=== PATIENT | male | born 1965 | race Caucasian/White ===

== ENCOUNTER 2017-01-11 11:58 | Inpatient (IN) | payer OTHER ==
[~2017-01-11] VITALS: Ht 167.6 cm; Wt 58.2 kg
[2017-01-11] VITALS (9 sets, daily range): BP systolic 126–165; BP diastolic 72–92; PULSE 76–101; RESP 18–30; TEMP 97.8–98.2; O2SAT 92–98
[2017-01-11] MEDS: SODIUM CHLOR 0.9% 1000 ML INJ 1,000 ML IV SCH ×2 (02:00→18:05)
[2017-01-11] MEDS ORDERED: SODIUM CHLOR 0.9% 1000 ML INJ 1,000 ML IV ONE (12:17)
[2017-01-11 12:20] LABS: MEAN CORPUSCULAR HGB CONC 27.9 % (32.0-36.0)
--- NOTE | 2017-01-11 12:23 | PD ---
HPI Chief Complaint: Diabetic Time Seen by Provider: 12:17 Travel History International Travel<30 days: No Contact w/Intl Traveler<30days: No Traveled to known affect area: No History of Present Illness HPI 51-year-old male with history of diabetes, previous episodes of DKA, hypertension, multiple medical issues, nursing notes reviewed, presents to the ER today because he has had 2 weeks' history of nausea, vomiting, not feeling well according to roommates, and his blood sugar read high according to EMS. He denies any fevers, abdominal pain, chest pains, shortness of breath, or other issues. He has not been able to take his medications due to vomiting. Modifying Factors: None Associated Signs & Symptoms: Nausea, vomiting, not keeping anything down, elevated blood sugar Risk Factors: Diabetic PFSH Past Medical History Cardiovascular Problems: Yes Diabetes: Yes Social History Tobacco Use: No Allergies-Medications (Allergen,Severity, Reaction): Coded Allergies: Iodine (Verified Allergy, Severe, ITCHING, 01/11/17) Shellfish (Verified Allergy, Intermediate, ITCHING, 01/11/17) Reported Meds & Prescriptions Reported Meds & Active Scripts Active Reported Levemir Flextouch Pen Inj (Insulin Detemir) 300 unit/3 ML Pen 20 Units SQ BID Meclizine (Meclizine HCl) 25 Mg Tab 25 Mg PO TID PRN Metformin (Metformin HCl) 500 Mg Tab 500 Mg PO BIDPC With meals Review of Systems Except as stated in HPI: all other systems reviewed are Neg Physical Exam Narrative GENERAL: Well-nourished, well-developed middle age white male patient in moderate distress, vomiting in the ER. Awake and oriented 3. SKIN: Warm and dry. HEAD: Normocephalic. EYES: No scleral icterus. No injection or drainage. NECK: Supple, trachea midline. CARDIOVASCULAR: Regular rate and rhythm without murmurs, gallops, or rubs. RESPIRATORY: Breath sounds equal bilaterally. No accessory muscle use. GASTROINTESTINAL: Abdomen soft, non-tender, nondistended. MUSCULOSKELETAL: No cyanosis, or edema. BACK: Nontender without obvious deformity. No CVA tenderness. NEUROLOGICAL: Awake. Cranial nerves II through XII intact. Motor and sensory grossly within normal limits. Five out of 5 muscle strength in all muscle groups. Normal speech. Lethargic. Data Data Last Documented VS Vital Signs Date Time Temp Pulse Resp B/P Pulse Ox O2 Delivery O2 Flow Rate FiO2 01/11/17 15:52 98.0 78 18 160/92 97 Nasal Cannula 3 Orders Complete Blood Count With Diff (01/11/17 12:17) Comprehensive Metabolic Panel (01/11/17 12:17) Magnesium (Mg) (01/11/17 12:17) Phosphorus (Po4) (01/11/17 12:17) Beta Hydroxybutyrate (Acetone) (01/11/17 12:17) Urinalysis - C+S If Indicated (01/11/17 12:17) Arterial Blood Gas (Abg) (01/11/17 12:17) Blood Glucose (01/11/17 12:17) Blood Glucose (01/11/17 13:17) Ecg Monitoring (01/11/17:17) Iv Access Insert/Monitor (01/11/17 12:17) Oximetry (01/11/17 12:17) NPO (01/11/17 12:17) Sodium Chloride 0.9% Flush (Ns Flush) (01/11/17 12:30) Sodium Chlor 0.9% 1000 Ml Inj (Ns 1000 M (01/11/17 12:17) Lipase (01/11/17 12:23) Ondansetron Inj (Zofran Inj) (01/11/17 12:45) Promethazine Inj (Phenergan Inj) (01/11/17 13:30) Ns + Kcl 20 Meq Inj (Ns + Kcl 20 Meq Inj (01/11/17 16:30) ^ Insert Iv (01/11/17 17:03) Diet Npo (01/11/17 Dinner) Sodium Chlor 0.9% 1000 Ml Inj (Ns 1000 M (01/11/17 17:03) Dext 5%-Nacl 0.9% 1000 Ml Inj (D5w-Ns 10 (01/11/17 17:03) Insulin Human Regular Inj (Novolin R Inj (01/11/17 17:15) Insulin Regular (Iv Infusion) (Novolin R (01/11/17 17:15) Potassium Chlor 40 Meq Premix (Kcl 40 Me (01/11/17 17:15) Potassium Chlor 40 Meq Premix (Kcl 40 Me (01/11/17 17:15) Potassium Chlor 20 Meq Premix (Kcl 20 Me (01/11/17 17:15) Potassium Chlor 20 Meq Premix (Kcl 20 Me (01/11/17 17:15) Potassium Chlor 20 Meq Premix (Kcl 20 Me (01/11/17 17:15) Potassium Chlor 20 Meq Premix (Kcl 20 Me (01/11/17 17:15) Potassium Chlor 20 Meq Premix (Kcl 20 Me (01/11/17 17:15) Potassium Chlor 20 Meq Premix (Kcl 20 Me (01/11/17 17:15) Sodium Bicarbonate 8.4% Inj (Sodium Bica (01/11/17 17:15) Sodium Bicarbonate 8.4% Inj (Sodium Bica (01/11/17 17:15) Sodium Phosphate Inj (Sodium Phosphate I (01/11/17 17:15) Hemoglobin (Hgb) A1c (01/11/17 17:03) Basic Metabolic Panel (Bmp) (01/11/17 22:03) Basic Metabolic Panel (Bmp) (01/12/17 04:03) Basic Metabolic Panel (Bmp) (01/12/17 10:03) Basic Metabolic Panel (Bmp) (01/12/17 16:03) Magnesium (Mg) (01/11/17 22:03) Magnesium (Mg) (01/12/17 04:03) Magnesium (Mg) (01/12/17 10:03) Magnesium (Mg) (01/12/17 16:03) Phosphorus (Po4) (01/11/17 22:03) Phosphorus (Po4) (01/12/17 04:03) Phosphorus (Po4) (01/12/17 10:03) Phosphorus (Po4) (01/12/17 16:03) Beta Hydroxybutyrate (Acetone) (01/12/17 04:03) Beta Hydroxybutyrate (Acetone) (01/12/17 16:03) Admit Order (Ed Use Only) (01/11/17 17:22) Labs Laboratory Tests Test 01/11/17 01/11/17 01/11/17 12:30 12:52 13:00 White Blood Count 15.9 TH/MM3 Red Blood Count 4.73 MIL/MM3 Hemoglobin 14.3 GM/DL Hematocrit 51.2 % Mean Corpuscular Volume 108.2 FL Mean Corpuscular Hemoglobin 30.2 PG Mean Corpuscular Hemoglobin 27.9 % Concent Red Cell Distribution Width 13.9 % Platelet Count 233 TH/MM3 Mean Platelet Volume 9.8 FL Neutrophils (%) (Auto) 89.7 % Lymphocytes (%) (Auto) 2.4 % Monocytes (%) (Auto) 7.7 % Eosinophils (%) (Auto) 0.1 % Basophils (%) (Auto) 0.1 % Neutrophils # (Auto) 14.3 TH/MM3 Lymphocytes # (Auto) 0.4 TH/MM3 Monocytes # (Auto) 1.2 TH/MM3 Eosinophils # (Auto) 0.0 TH/MM3 Basophils # (Auto) 0.0 TH/MM3 CBC Comment DIFF FINAL Differential Comment Sodium Level 126 MEQ/L Potassium Level 2.3 MEQ/L Chloride Level 84 MEQ/L Carbon Dioxide Level 29.5 MEQ/L Anion Gap 13 MEQ/L Blood Urea Nitrogen 33 MG/DL Creatinine 2.46 MG/DL Estimat Glomerular Filtration 28 ML/MIN Rate Random Glucose 1854 MG/DL Calcium Level 8.0 MG/DL Phosphorus Level 4.5 MG/DL Magnesium Level 2.4 MG/DL Total Bilirubin 0.9 MG/DL Aspartate Amino Transf 15 U/L (AST/SGOT) Alanine Aminotransferase 11 U/L (ALT/SGPT) Alkaline Phosphatase 106 U/L Total Protein 6.5 GM/DL Albumin 3.4 GM/DL B-Hydroxybutyrate 0.17 MMOL/L Blood Gas Puncture Site LT RADIAL Blood Gas Patient Temperature 98.6 Blood Gas HCO3 26 mmol/L Blood Gas Base Excess -0.1 mmol/L Blood Gas Oxygen Saturation 80 % Arterial Blood pH 7.25 Arterial Blood Partial 62 mmHg Pressure CO2 Arterial Blood Partial 64 mmHG Pressure O2 Arterial Blood Oxygen Content 15.3 Vol % Arterial Blood 5.8 % Carboxyhemoglobin Arterial Blood Methemoglobin 2.0 % Blood Gas Hemoglobin 13.5 G/DL Oxygen Delivery Device ROOM AIR Blood Gas Inspired Oxygen 21 % Urine Color COLORLESS Urine Turbidity CLEAR Urine pH 5.0 Urine Specific [place] 1.026 Urine Protein NEG mg/dL Urine Glucose (UA) 1000 mg/dL Urine Ketones NEG mg/dL Urine Occult Blood TRACE Urine Nitrite NEG Urine Bilirubin NEG Urine Urobilinogen LESS THAN 2.0 MG/DL Urine Leukocyte Esterase NEG Urine RBC 1 /hpf Urine WBC 3 /hpf Microscopic Urinalysis Comment CULT NOT INDICATED MDM Medical Decision Making Medical Screen Exam Complete: Yes Emergency Medical Condition: Yes Medical Record Reviewed: Yes Interpretation(s) Laboratory Tests Test 01/11/17 01/11/17 01/11/17 12:30 12:52 13:00 White Blood Count 15.9 TH/MM3 (4.0-11.0) Hematocrit 51.2 % (39.0-51.0) Mean Corpuscular Volume 108.2 FL (80.0-100.0) Mean Corpuscular Hemoglobin 27.9 % Concent (32.0-36.0) Neutrophils (%) (Auto) 89.7 % (16.0-70.0) Lymphocytes (%) (Auto) 2.4 % (9.0-44.0) Neutrophils # (Auto) 14.3 TH/MM3 (1.8-7.7) Lymphocytes # (Auto) 0.4 TH/MM3 (1.0-4.8) Monocytes # (Auto) 1.2 TH/MM3 (0-0.9) Sodium Level 126 MEQ/L (136-145) Potassium Level 2.3 MEQ/L (3.5-5.1) Chloride Level 84 MEQ/L (98-107) Blood Urea Nitrogen 33 MG/DL (7-18) Creatinine 2.46 MG/DL (0.60-1.30) Estimat Glomerular Filtration 28 ML/MIN (>89) Rate Random Glucose 1854 MG/DL (74-106) Calcium Level 8.0 MG/DL (8.5-10.1) Alanine Aminotransferase 11 U/L (12-78) (ALT/SGPT) Blood Gas Oxygen Saturation 80 % (90-100) Arterial Blood pH 7.25 (7.380-7.420) Arterial Blood Partial 62 mmHg (38-42) Pressure CO2 Arterial Blood 5.8 % (0-4) Carboxyhemoglobin Urine Glucose (UA) 1000 mg/dL (NEG) Urine Occult Blood TRACE (NEG) Differential Diagnosis Nausea, vomiting, elevated blood sugarshypoglycemia versus dehydration versus metabolic issues versus gastroenteritis versus DKA Narrative Course Lab work returns showing significant dehydration, hypokalemia, severe hyperglycemia. He was given IV fluids in the ER, potassium in the ER, and insulin in the ER. DKA protocol was initiated. Case was discussed with patient 's and at this point, my plan would be to admit the patient for further treatment and evaluation. Case was discussed with [facility] resident service for admission. Patient's white blood cell counts are fairly elevated for unknown reasons. He was given IV antibiotics as well as precaution. Aggregate critical care time was 30 minutes. Time to perform other separately billable procedures was not included in the critical care time. My time did not include minutes spent treating any other patients simultaneously or on activities that did not directly contribute to the patient's treatment. The services I provided to this patient were to treat and/or prevent clinically significant deterioration that could result in: DKA, worsening of her toilet abnormalities, dysrhythmias, I provided critical care services requiring my management, as noted below: Chart data review, documentation time, medication orders and management, vital sign assessments/reviewing monitor data, ordering and reviewing lab tests, ordering and interpreting/reviewing x-rays and diagnostic studies, care of the patient and discussion of the patient with the admitting physicians. Diagnosis Primary Impression: HYPERGLYCEMIA, UNSPECIFIED Additional Impression: Severe dehydration Admitting Information Admitting Physician Requests: Admit Jackson Read MD Jan 11, 2017 12:23
[2017-01-11] MEDS ORDERED: MECL-62 PO (12:27)
[2017-01-11] MEDS ORDERED: METF500T PO (12:27)
[2017-01-11] MEDS ORDERED: INSU1INJ5 SQ (12:27)
[2017-01-11] MEDS ORDERED: ONDANSETRON HCL 4 MG/2 ML VIAL IV PUSH ONE (12:45)
[2017-01-11 13:00] LABS: AUTOMATED NEUTROPHIL # 14.3 TH/MM3 (1.8-7.7); BASOPHIL % 0.1 % (0.0-2.0); EOSINOPHIL % 0.1 % (0.0-4.0); HEMATOCRIT 51.2 % (39.0-51.0); HEMO FLAGS DIFF FINAL; LYMPH % 2.4 % (9.0-44.0); LYMPHOCYTE # 0.4 TH/MM3 (1.0-4.8); MEAN CELL VOLUME 108.2 FL (80.0-100.0); MEAN CORPUSCULAR HEMOGLOBIN 30.2 PG (27.0-34.0); MONO % 7.7 % (0.0-8.0); NEUT % 89.7 % (16.0-70.0); PLATELET COUNT 233 TH/MM3 (150-450); RED BLOOD COUNT 4.73 MIL/MM3 (4.50-5.90); RED CELL DISTRIBUTION WIDTH 13.9 % (11.6-17.2); WHITE BLOOD COUNT 15.9 TH/MM3 (4.0-11.0)
[2017-01-11 13:02] LABS: BLOOD GAS BASE EXCESS -0.1 mmol/L (-2-2); BLOOD GAS CARBOXYHEMOGLOBIN 5.8 % (0-4); BLOOD GAS HCO3 26 mmol/L (22-26); BLOOD GAS O2 HGB SATURATION 80 % (90-100); BLOOD GAS OXYGEN CONTENT 15.3 Vol % (12.0-20.0); BLOOD GAS PCO2 62 mmHg (38-42); BLOOD GAS PO2 64 mmHG (61-120); BLOOD GAS TOTAL HGB 13.5 G/DL (12.0-16.0); CRITICAL VALUE YES; TEMP CORR TO 98.6
[2017-01-11 13:03] LABS: DRAW SITE LT RADIAL; FIO2 21 %; NUMBER OF ARTERIAL PUNCTURES 2; OXYGEN DEVICE ROOM AIR; STAT YES
[2017-01-11] MEDS: SODIUM CHLORIDE 0.9% FLUSH 5 ML FLUSH IVF PRN ×2 (13:30→17:50)
[2017-01-11] MEDS ORDERED: PROMETHAZINE INJ 25 MG/ML VIAL IM ONE (13:30)
[2017-01-11 13:43] LABS: BLOOD, URINE TRACE (NEG); GLUCOSE,URINE 1000 mg/dL (NEG); KETONE, URINE NEG (NEG); NITRITE,URINE NEG (NEG); URINE COLOR COLORLESS (YELLW/STRAW)
[2017-01-11 13:44] LABS: COMMENT (UR) CULT NOT INDICATED; CULTURE IF INDICATED CULT NOT INDICATED
[2017-01-11 16:11] LABS: ALKALINE PHOSPHATASE 106 U/L (45-117); ALT (GPT) 11 U/L (12-78); ANION GAP 13 MEQ/L (5-15); AST (GOT) 15 U/L (15-37); BETA-HYDROXYBUTYRATE 0.17 MMOL/L (0.00-0.39); BICARBONATE 29.5 MEQ/L (21.0-32.0); BLOOD UREA NITROGEN 33 MG/DL (7-18); CHLORIDE 84 MEQ/L (98-107); GLOMERULAR FILTRATION RATE 28 ML/MIN (>89); MAGNESIUM 2.4 MG/DL (1.5-2.5); SODIUM (NA) 126 MEQ/L (136-145); TOTAL BILIRUBIN ADULT 0.9 MG/DL (0.2-1.0)
[2017-01-11 16:19] LABS: POTASSIUM 2.3 MEQ/L (3.5-5.1)
[2017-01-11] MEDS ORDERED: NS + KCL 20 MEQ INJ 1,000 ML IV ONE (16:30)
[2017-01-11] MEDS ORDERED: DEXT 5%-NACL 0.9% 1000 ML INJ 1,000 ML IV SCH (17:03)
[2017-01-11] MEDS ORDERED: SODIUM BICARBONATE 8.4% SOLN 50 MEQ/50 ML VIAL IV PRN ×2 (17:15)
[2017-01-11] MEDS ORDERED: INSULIN REGULAR (IV INFUSION) 100 UNITS in SODIUM CHLORIDE 0.9% INJ 99 ML IV SCH (17:15)
[2017-01-11] MEDS ORDERED: INSULIN HUMAN REGULAR 1,000 UNITS/10 ML VIAL IV PUSH ONE (17:15)
[2017-01-11] MEDS ORDERED: SODIUM PHOSPHATE INJ 15 MMOL in SODIUM CHLORIDE 0.9% INJ 100 ML IV PRN (17:15)
[2017-01-11] MEDS ORDERED: POTASSIUM CHLOR 20 MEQ PREMIX 100 ML IV PRN ×5 (17:15)
[2017-01-11] MEDS ORDERED: POTASSIUM CHLOR 40 MEQ PREMIX 100 ML IV PRN ×2 (17:15)
[2017-01-11] MEDS ORDERED: PIPERACIL-TAZO 4.5 GM PREMIX 100 ML IV STA (17:29)
--- NOTE | 2017-01-11 17:45 | HHI.HP ---
[facility] Service Family Medicine Primary Care Physician Non-Staff Admission Diagnosis severe hyperglycemia/dehydration Diagnoses: International Travel<30 Days: No Contact w/Intl Traveler<30days: No Known Affected Area: No History of Present Illness Of note patient is unwilling to communicate during this H&P, data obtained from chart review This is a 51-year-old male with a history of diabetes, previous episodes of DKA, hypertension, and noncompliance. Presenting for 2 week history of nausea and vomiting and just overall malaise. Complaining of abdominal pain and feeling nauseated. Otherwise unwilling to communicate, and history obtained from roommate who had left prior to my arrival. 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's tenosynovitis: Currently with stitches in place Reported Medications Reported Meds & Active Scripts Active Reported Levemir Flextouch Pen Inj (Insulin Detemir) 300 unit/3 ML Pen 20 Units SQ BID Meclizine (Meclizine HCl) 25 Mg Tab 25 Mg PO TID PRN Metformin (Metformin HCl) 500 Mg Tab 500 Mg PO BIDPC With meals Allergies: Coded Allergies: Iodine (Verified Allergy, Severe, ITCHING, 01/11/17) Shellfish (Verified Allergy, Intermediate, ITCHING, 01/11/17) Family History Unable to obtain Social History Unable to obtain Physical Exam Vital Signs Vital Signs Date Time Temp Pulse Resp B/P Pulse Ox O2 Delivery O2 Flow Rate FiO2 01/11/17 15:52 98.0 78 18 160/92 97 Nasal Cannula 3 01/11/17 14:54 76 18 126/74 98 Nasal Cannula 3 01/11/17 14:15 77 20 165/86 97 Nasal Cannula 3 01/11/17 12:43 92 20 140/79 96 Nasal Cannula 3 01/11/17 12:30 89 22 96 Nasal Cannula 3 01/11/17 12:23 22 96 Nasal Cannula 3 01/11/17 12:16 97.8 90 22 146/78 92 Physical Exam GENERAL: Cachectic, middle age white male patient in moderate distress, vomiting. Awake unwilling to answer questions SKIN: Warm and dry. HEAD: Normocephalic. ENT: No scleral icterus. No injection or drainage. No nasal drainage. Tympanic membranes observed borders appropriate, cone of light reflecting to back of the head NECK: Supple, trachea midline. CARDIOVASCULAR: Regular rate and rhythm without murmurs, gallops, or rubs. RESPIRATORY: Breath sounds equal bilaterally. No accessory muscle use. GASTROINTESTINAL: Abdomen soft, non-tender, nondistended. MUSCULOSKELETAL: No cyanosis, or edema. Hand and cloth bandage with stitches across the palm BACK: Nontender without obvious deformity. No CVA tenderness. NEUROLOGICAL: Awake. Cranial nerves II through XII grossly intact. Motor and sensory grossly within normal limits. Speaking in one-word sentences, not answering questions, not following commands Laboratory Laboratory Tests Test 01/11/17 01/11/17 01/11/17 12:30 12:52 13:00 White Blood Count 15.9 Red Blood Count 4.73 Hemoglobin 14.3 Hematocrit 51.2 Mean Corpuscular Volume 108.2 Mean Corpuscular Hemoglobin 30.2 Mean Corpuscular Hemoglobin 27.9 Concent Red Cell Distribution Width 13.9 Platelet Count 233 Mean Platelet Volume 9.8 Neutrophils (%) (Auto) 89.7 Lymphocytes (%) (Auto) 2.4 Monocytes (%) (Auto) 7.7 Eosinophils (%) (Auto) 0.1 Basophils (%) (Auto) 0.1 Neutrophils # (Auto) 14.3 Lymphocytes # (Auto) 0.4 Monocytes # (Auto) 1.2 Eosinophils # (Auto) 0.0 Basophils # (Auto) 0.0 CBC Comment DIFF FINAL Differential Comment Sodium Level 126 Potassium Level 2.3 Chloride Level 84 Carbon Dioxide Level 29.5 Anion Gap 13 Blood Urea Nitrogen 33 Creatinine 2.46 Estimat Glomerular Filtration 28 Rate Random Glucose 1854 Calcium Level 8.0 Phosphorus Level 4.5 Magnesium Level 2.4 Total Bilirubin 0.9 Aspartate Amino Transf 15 (AST/SGOT) Alanine Aminotransferase 11 (ALT/SGPT) Alkaline Phosphatase 106 Total Protein 6.5 Albumin 3.4 B-Hydroxybutyrate 0.17 Blood Gas Puncture Site LT RADIAL Blood Gas Patient Temperature 98.6 Blood Gas HCO3 26 Blood Gas Base Excess -0.1 Blood Gas Oxygen Saturation 80 Arterial Blood pH 7.25 Arterial Blood Partial 62 Pressure CO2 Arterial Blood Partial 64 Pressure O2 Arterial Blood Oxygen Content 15.3 Arterial Blood 5.8 Carboxyhemoglobin Arterial Blood Methemoglobin 2.0 Blood Gas Hemoglobin 13.5 Oxygen Delivery Device ROOM AIR Blood Gas Inspired Oxygen 21 Urine Color COLORLESS Urine Turbidity CLEAR Urine pH 5.0 Urine Specific [place] 1.026 Urine Protein NEG Urine Glucose (UA) 1000 Urine Ketones NEG Urine Occult Blood TRACE Urine Nitrite NEG Urine Bilirubin NEG Urine Urobilinogen LESS THAN 2.0 Urine Leukocyte Esterase NEG Urine RBC 1 Urine WBC 3 Microscopic Urinalysis Comment CULT NOT INDICATED Result Diagram: 01/11/17 1230 01/11/17 1230 Imaging Last Impressions Chest X-Ray 01/11/17 1729 Signed Impressions: Service Date/Time: Wednesday, January 11, 2017 18:34 - CONCLUSION: No acute disease. Filipe Meredith MD Assessment and Plan Assessment and Plan This is a 51-year-old male with a history of diabetes, previous episodes of DKA, hypertension, and noncompliance. Patient is being admitted to the ICU for severely elevated hyperglycemia borderline DKA. Code Status Full code Discussed Condition With [facility]DW: Dr. Longo Problem List: (1) Hyperglycemia without ketosis Status: Acute Plan: Patient is found to have a random glucose of 1854. Anion gap 13. BUN/ creatinine is 33/2.46 respectively. Beta hydroxybutyrate is 0.17. HHS vs start of DKA * Admit to the ICU * Started DKA protocol (i.e. IV fluids, insulin, potassium) * Zofran 4 mg IV every 6 hours when necessary nausea or vomiting * Zosyn IV 1 * Monitor electrolytes and replace accordingly per protocol * CBC, BMP ordered for the a.m. (2) Severe dehydration Status: Acute Plan: Patient is receiving IV fluids per DKA protocol (3) Hyperkalemia Status: Acute Plan: Patient is hypokalemic at 2.3 patient is receiving IV potassium per DKA protocol (4) Noncompliance Status: Acute Plan: Patient with a history of noncompliance. We'll emphasize the importance of taking his medication once he has improvement of his clinical condition (5) Nutrition, metabolism, and development symptoms Status: Acute Plan: Bed rest Monitor I's and O's Vitals every 4 hours Neuro checks every 4 SCDs and heparin every 8 for DVT prophylaxis CODE STATUS: Full code Disposition: Pending improvement of hyperglycemia Physician Certification 2 Midnight Certification Type: Admission for Inpatient Services Order for Inpatient Services The services are ordered in accordance with Medicare regulations or non- Medicare payer requirements, as applicable. In the case of services not specified as inpatient-only, they are appropriately provided as inpatient services in accordance with the 2-midnight benchmark. Estimated LOS (days): 2 days is the estimated time the patient will need to remain in the hospital, assuming treatment plan goals are met and no additional complications. Post-Hospital Plan: Home Andrei Mariano MD R2 Jan 11, 2017 17:45
[2017-01-11] MEDS: POTASSIUM CHLOR 20 MEQ PREMIX 100 ML IV PRN ×2 (17:46→22:46)
[2017-01-11] MEDS ORDERED: NALOXONE HCL 0.4 MG/ML AMP IV PRN (18:15)
[2017-01-11] MEDS ORDERED: SODIUM CHLORIDE 0.9% FLUSH 5 ML FLUSH FLUSH PRN (18:15)
[2017-01-11] MEDS ORDERED: ACETAMINOPHEN 325 MG TAB PO PRN (18:15)
[2017-01-11] MEDS: ONDANSETRON HCL 4 MG/2 ML VIAL IVP PRN ×2 (18:23→21:07)
--- NOTE | 2017-01-11 19:06 | RADRPT ---
EXAM DATE/TIME: 01/11/2017 18:34 [place] COMPARISON: No previous studies available for comparison. INDICATIONS : Patient has been short of breath and felt dehydrated for three days. MEDICAL HISTORY : Diabetes mellitus type I. SURGICAL HISTORY : None. ENCOUNTER: Initial ACUITY: 3 days PAIN SCORE: 0/10 LOCATION: Bilateral chest FINDINGS: A single view of the chest demonstrates the lungs to be symmetrically aerated without evidence of mas s, infiltrate or effusion. The cardiomediastinal contours are unremarkable. Osseous structures are intact. CONCLUSION: No acute disease. Filipe Meredith MD on January 11, 2017 at 19:04 Board Certified Radiologist. This report was verified electronically.
[2017-01-11 20:06] LABS: LACTIC ACID GHOST NOT REPORTABLE
[2017-01-11] MEDS ORDERED: hydrALAZINE HCL 20 MG/ML VIAL IV PRN (20:30)
[2017-01-11] MEDS ORDERED: CHLORHEXIDINE GLUCONATE 2 % 1 PACK (2 CLOTHS)(extra cloths) TOP PRN (21:15)
[2017-01-11 22:08] LABS: ANION GAP 10 MEQ/L (5-15); BICARBONATE 32.8 MEQ/L (21.0-32.0); BLOOD UREA NITROGEN 30 MG/DL (7-18); CHLORIDE 98 MEQ/L (98-107); GLOMERULAR FILTRATION RATE 36 ML/MIN (>89); MAGNESIUM 2.5 MG/DL (1.5-2.5); SODIUM (NA) 141 MEQ/L (136-145)
[2017-01-11 22:18] LABS: POTASSIUM 2.6 MEQ/L (3.5-5.1)
[2017-01-11] MEDS ORDERED: POTASSIUM CHLORIDE 20 MEQ CONTROLLED RELEASE TAB PO ONE (22:45)
[2017-01-11] MEDS: SODIUM CHLORIDE 0.9% FLUSH 5 ML FLUSH FLUSH SCH (22:50)
[2017-01-11] MEDS: HEPARIN SODIUM - SQ 10,000 UNITS/ML VIAL SQ SCH (22:51)
[2017-01-12] VITALS (9 sets, daily range): BP systolic 100–121; BP diastolic 59–74; PULSE 84–108; RESP 22–32; TEMP 98.3–99.2; O2SAT 91–96
[2017-01-12] MEDS ORDERED: ONDANSETRON HCL 4 MG/2 ML VIAL IVP PRN
[2017-01-12] MEDS: POTASSIUM CHLOR 20 MEQ PREMIX 100 ML IV PRN (01:06)
[2017-01-12] MEDS ORDERED: CALCIUM CARBONATE 500 MG CHEWABLE TAB PO PRN (01:30)
[2017-01-12] MEDS ORDERED: CHLORHEXIDINE GLUCONATE 2 % 1 PACK (2 CLOTHS)(taper/protocol) TOP SCH (04:00)
[2017-01-12 04:12] LABS: AUTOMATED NEUTROPHIL # 19.9 TH/MM3 (1.8-7.7); BASOPHIL % 0.2 % (0.0-2.0); EOSINOPHIL % 0.1 % (0.0-4.0); HEMATOCRIT 41.6 % (39.0-51.0); LYMPH % 12.2 % (9.0-44.0); LYMPHOCYTE # 3.1 TH/MM3 (1.0-4.8); MEAN CELL VOLUME 84.5 FL (80.0-100.0); MEAN CORPUSCULAR HGB CONC 35.6 % (32.0-36.0); MONO % 9.1 % (0.0-8.0); NEUT % 78.4 % (16.0-70.0); PLATELET COUNT 249 TH/MM3 (150-450); RED BLOOD COUNT 4.92 MIL/MM3 (4.50-5.90); RED CELL DISTRIBUTION WIDTH 12.7 % (11.6-17.2); WHITE BLOOD COUNT 25.4 TH/MM3 (4.0-11.0)
[2017-01-12 04:18] LABS: HEMO FLAGS AUTO DIFF
[2017-01-12 04:32] LABS: BETA-HYDROXYBUTYRATE 0.13 MMOL/L (0.00-0.39); BICARBONATE 38.1 MEQ/L (21.0-32.0); MAGNESIUM 2.3 MG/DL (1.5-2.5); POTASSIUM 3.5 MEQ/L (3.5-5.1)
[2017-01-12] MEDS: SODIUM CHLOR 0.9% 1000 ML INJ 1,000 ML IV SCH (05:03)
[2017-01-12] MEDS: INSULIN DETEMIR 100 UNITS/ML VIAL SQ SCH ×2 (05:12→08:47)
[2017-01-12] MEDS: HEPARIN SODIUM - SQ 10,000 UNITS/ML VIAL SQ SCH ×2 (05:13→11:38)
[2017-01-12] MEDS: DEXT 5%-NACL 0.45% 1000 ML INJ 1,000 ML IV SCH ×2 (06:00→12:10)
[2017-01-12] MEDS: INSULIN ASPART SUPPLEMENTAL SCALE SQ SCH ×2 (06:38→11:00)
[2017-01-12 07:34] LABS: PLATELET ESTIMATE SMEAR NORMAL (NORMAL); PLATELET MORPHOLOGY NORMAL (NORMAL); SCAN/DIFF AUTO DIFF CONFIRMED
[2017-01-12] MEDS: INSULIN ASPART 1,000 UNITS/10 ML VIAL SQ SCH ×2 (08:47→11:38)
[2017-01-12] MEDS: SODIUM CHLORIDE 0.9% FLUSH 5 ML FLUSH FLUSH SCH (08:48)
[2017-01-12] MEDS ORDERED: MULTIVITAMIN TAB PO SCH (09:15)
[2017-01-12] MEDS ORDERED: THIAMINE HCL 100 MG TAB PO SCH (09:15)
[2017-01-12] MEDS ORDERED: FOLIC ACID 1 MG TAB PO SCH (09:15)
[2017-01-12 10:58] LABS: BICARBONATE 37.5 MEQ/L (21.0-32.0); POTASSIUM 3.3 MEQ/L (3.5-5.1)
--- NOTE | 2017-01-12 11:50 | HHI.FPPN ---
Subjective Remarks Patient seen, examined and discussed with the medicine team. This is a 51-year-old male who was seen in intensive care this morning. He had been having nausea and vomiting and abdominal pain for the 2 weeks prior to admission, associated with malaise. He is a known diabetic, and has a history of DKA. He denies alcohol use. This morning, he feels" horrible" but much better than the last several days. He reports a lot of relief after having surgery on his right hand for Dupuytren's contractures on December 26. At the time of admission his blood glucose was 1854, his sodium was 126, his potassium was 2.3 and his anion gap was 13. His pH was 7.25 and PO2 was 64. He has remained on D5 and despite this his glucose at one time dropped to 89. His home medications include Levemir, meclizine and metformin. He's been drinking fluids this morning and keeping them down. His recently moved back in with him and is arranging for a [facility] clinic visit to have the sutures removed from his right hand. This morning, he does report seeing things, in particular he saw some sort of green blob on one of my colleagues jackets, and reports that he has seen big bugs or the drawings thereof. He usually doesn't say anything about this when he sees these things, and he denies hearing any voices. Objective Vitals Vital Signs Date Time Temp Pulse Resp B/P Pulse Ox O2 Delivery O2 Flow Rate FiO2 01/12/17 08:00 100 01/12/17 08:00 98.6 84 22 103/59 96 01/12/17 07:46 95 21 01/12/17 06:00 92 01/12/17 04:00 95 01/12/17 04:00 99.0 95 32 111/74 94 01/12/17 03:24 95 21 01/12/17 02:00 108 01/12/17 00:00 105 01/12/17 00:00 98.3 105 29 100/73 95 01/11/17 22:00 101 01/11/17 21:00 98.2 101 30 128/77 95 01/11/17 18:01 92 20 146/72 98 Nasal Cannula 3 01/11/17 15:52 98.0 78 18 160/92 97 Nasal Cannula 3 01/11/17 14:54 76 18 126/74 98 Nasal Cannula 3 01/11/17 14:15 77 20 165/86 97 Nasal Cannula 3 01/11/17 12:43 92 20 140/79 96 Nasal Cannula 3 01/11/17 12:30 89 22 96 Nasal Cannula 3 01/11/17 12:23 22 96 Nasal Cannula 3 01/11/17 12:16 97.8 90 22 146/78 92 I/O 01/11/17 01/11/17 01/11/17 01/12/17 01/12/17 01/12/17 07:00 15:00 23:00 07:00 15:00 23:00 Intake Total 934 ml 840 ml Output Total 900 ml 900 ml 500 ml Balance -900 ml 34 ml 340 ml Intake IV Total 934 ml 840 ml Output Urine Total 900 ml 900 ml 500 ml # Voids 2 1 # Bowel Movements 0 0 Result Diagram: 01/12/17 0332 01/12/17 0925 Other Results Laboratory Tests Test 01/11/17 01/11/17 01/11/17 01/11/17 12:30 12:52 13:00 17:50 White Blood Count 15.9 TH/MM3 Red Blood Count 4.73 MIL/MM3 Hemoglobin 14.3 GM/DL Hematocrit 51.2 % Mean Corpuscular Volume 108.2 FL Mean Corpuscular Hemoglobin 30.2 PG Mean Corpuscular Hemoglobin 27.9 % Concent Red Cell Distribution Width 13.9 % Platelet Count 233 TH/MM3 Mean Platelet Volume 9.8 FL Neutrophils (%) (Auto) 89.7 % Lymphocytes (%) (Auto) 2.4 % Monocytes (%) (Auto) 7.7 % Eosinophils (%) (Auto) 0.1 % Basophils (%) (Auto) 0.1 % Neutrophils # (Auto) 14.3 TH/MM3 Lymphocytes # (Auto) 0.4 TH/MM3 Monocytes # (Auto) 1.2 TH/MM3 Eosinophils # (Auto) 0.0 TH/MM3 Basophils # (Auto) 0.0 TH/MM3 CBC Comment DIFF FINAL Differential Comment Sodium Level 126 MEQ/L Potassium Level 2.3 MEQ/L Chloride Level 84 MEQ/L Carbon Dioxide Level 29.5 MEQ/L Anion Gap 13 MEQ/L Blood Urea Nitrogen 33 MG/DL Creatinine 2.46 MG/DL Estimat Glomerular Filtration 28 ML/MIN Rate Random Glucose 1854 MG/DL Calcium Level 8.0 MG/DL Phosphorus Level 4.5 MG/DL Magnesium Level 2.4 MG/DL Total Bilirubin 0.9 MG/DL Aspartate Amino Transf 15 U/L (AST/SGOT) Alanine Aminotransferase 11 U/L (ALT/SGPT) Alkaline Phosphatase 106 U/L Total Protein 6.5 GM/DL Albumin 3.4 GM/DL Lipase 287 U/L B-Hydroxybutyrate 0.17 MMOL/L Blood Gas Puncture Site LT RADIAL Blood Gas Patient Temperature 98.6 Blood Gas HCO3 26 mmol/L Blood Gas Base Excess -0.1 mmol/L Blood Gas Oxygen Saturation 80 % Arterial Blood pH 7.25 Arterial Blood Partial 62 mmHg Pressure CO2 Arterial Blood Partial 64 mmHG Pressure O2 Arterial Blood Oxygen Content 15.3 Vol % Arterial Blood 5.8 % Carboxyhemoglobin Arterial Blood Methemoglobin 2.0 % Blood Gas Hemoglobin 13.5 G/DL Oxygen Delivery Device ROOM AIR Blood Gas Inspired Oxygen 21 % Urine Color COLORLESS Urine Turbidity CLEAR Urine pH 5.0 Urine Specific [place] 1.026 Urine Protein NEG mg/dL Urine Glucose (UA) 1000 mg/dL Urine Ketones NEG mg/dL Urine Occult Blood TRACE Urine Nitrite NEG Urine Bilirubin NEG Urine Urobilinogen LESS THAN 2.0 MG/DL Urine Leukocyte Esterase NEG Urine RBC 1 /hpf Urine WBC 3 /hpf Microscopic Urinalysis Comment CULT NOT INDICATED Lactic Acid Level 3.4 mmol/L Test 01/11/17 01/11/17 01/12/17 01/12/17 21:00 21:30 03:32 09:25 Nasal Screen MRSA (PCR) NEGATIVE Sodium Level 141 MEQ/L 151 MEQ/L 148 MEQ/L Potassium Level 2.6 MEQ/L 3.5 MEQ/L 3.3 MEQ/L Chloride Level 98 MEQ/L 108 MEQ/L 105 MEQ/L Carbon Dioxide Level 32.8 MEQ/L 38.1 MEQ/L 37.5 MEQ/L Anion Gap 10 MEQ/L 5 MEQ/L 6 MEQ/L Blood Urea Nitrogen 30 MG/DL 27 MG/DL 23 MG/DL Creatinine 1.99 MG/DL 1.38 MG/DL 1.24 MG/DL Estimat Glomerular Filtration 36 ML/MIN 54 ML/MIN 61 ML/MIN Rate Random Glucose 673 MG/DL 89 MG/DL 114 MG/DL Lactic Acid Level 3.8 mmol/L Calcium Level 8.8 MG/DL 8.8 MG/DL 8.5 MG/DL Phosphorus Level 5.4 MG/DL 4.6 MG/DL 2.9 MG/DL Magnesium Level 2.5 MG/DL 2.3 MG/DL 2.0 MG/DL White Blood Count 25.4 TH/MM3 Red Blood Count 4.92 MIL/MM3 Hemoglobin 14.8 GM/DL Hematocrit 41.6 % Mean Corpuscular Volume 84.5 FL Mean Corpuscular Hemoglobin 30.0 PG Mean Corpuscular Hemoglobin 35.6 % Concent Red Cell Distribution Width 12.7 % Platelet Count 249 TH/MM3 Mean Platelet Volume 8.4 FL Neutrophils (%) (Auto) 78.4 % Lymphocytes (%) (Auto) 12.2 % Monocytes (%) (Auto) 9.1 % Eosinophils (%) (Auto) 0.1 % Basophils (%) (Auto) 0.2 % Neutrophils # (Auto) 19.9 TH/MM3 Lymphocytes # (Auto) 3.1 TH/MM3 Monocytes # (Auto) 2.3 TH/MM3 Eosinophils # (Auto) 0.0 TH/MM3 Basophils # (Auto) 0.0 TH/MM3 CBC Comment AUTO DIFF Differential Comment AUTO DIFF CONFIRMED Platelet Estimate NORMAL Platelet Morphology Comment NORMAL B-Hydroxybutyrate 0.13 MMOL/L Imaging Last Impressions Chest X-Ray 01/11/17 5751 Signed Impressions: Service Date/Time: Wednesday, January 11, 2017 18:34 - CONCLUSION: No acute disease. Filipe Meredith MD Objective Remarks O. CONSTITUTIONAL/GEN: normally nourished, in NAD. EYES: conjunctiva normal, PERRLA, EOMI. ENT: Mouth and pharynx normal. Mucous membranes moist but the soft palate and gingiva are a bit edematous. NECK: No palpable lymphadenopathy LUNGS: clear A-P, respiratory effort is normal. CARDIOVASCULAR: RR without murmur or gallop. No significant edema. GI/ABD: soft without masses, without organomegaly. Bowel sounds are active NEURO: No focal deficits. He is not tremulous. SKIN: color normal, no rashes noted. Surgical wounds in the palm of his right hand from Dupuytren's contracture surgery, one of which has , sutures remain in place from December 26. No evidence of infection. HEME/LYMPH: no bruising, petechia or significant adenopathy MUSC: back is normal in appearance. Extremities are normal in appearance with the exception of his right hand. PSYCH/MENTAL STATUS: Alert and oriented x 3. A/P Assessment and Plan This is a 51-year-old male with a history of diabetes, previous episodes of DKA, hypertension, and noncompliance. Patient is being admitted to the ICU for severely elevated hyperglycemia borderline DKA. Attending Attestation Patient seen and examined. Case reviewed and discussed with the resident team. Agree with plan of care as discussed with me and documented in the note and orders. Problem List: (1) Hyperglycemia without ketosis Status: Acute Plan: Patient is found to have a random glucose of 1854, this morning glucose is 114. Patient much more alert * Admitted to the ICU * DKA protocol (i.e. IV fluids, insulin, potassium) * Zofran 4 mg IV every 6 hours when necessary nausea or vomiting * Zosyn IV 1 * Monitor electrolytes and replace accordingly per protocol * CBC, BMP ordered for the a.m. (2) Severe dehydration Status: Acute Plan: Patient is receiving IV fluids per DKA protocol (3) Hyperkalemia Status: Acute Plan: Patient is hypokalemic at 2.3 patient is receiving IV potassium per DKA protocol (4) Noncompliance Status: Acute Plan: Patient with a history of noncompliance. We'll emphasize the importance of taking his medication once he has improvement of his clinical condition (5) Nutrition, metabolism, and development symptoms Status: Acute Plan: Bed rest Monitor I's and O's Vitals every 4 hours Neuro checks every 4 SCDs and heparin every 8 for DVT prophylaxis CODE STATUS: Full code Disposition: Pending improvement of hyperglycemia (6) Dupuytren's contracture of both hands Status: Chronic Plan: Patient is 17 days postop surgery on the palm of his right hand for Dupuytren's contracture. Contractures to a lesser degree on the left hand. Some wound separation is noted but no evidence of infection. Eli Longo MD Jan 12, 2017 11:50
--- NOTE | 2017-01-12 14:51 | PD.CONS ---
Provisional Diagnosis Admission Date Jan 11, 2017 at 17:24 [place] I. Delirium due to underlying medical condition [place] II. Deferred [place] III. DM, HTN, peripheral neuropathy [place] IV. Disabled [place] V. 55 History of Present Illness Service Psychiatry Consult Requested By Primary Care Physician Non-Staff HPI The patient is a 51-year-old man, unemployed, , , without any previous psychiatric history, no previous psychiatric hospitalizations, no prior suicidal attempts, hospitalized because he had been having nausea and vomiting and abdominal pain for the 2 weeks prior to admission , associated with malaise. He is a known diabetic, and has a history of DKA. He reports a lot of relief after having surgery on his right hand for Dupuytren' s contractures on December 26. At the time of admission his blood glucose was 1854, his sodium was 126, his potassium was 2.3 and his anion gap was 13. His pH was 7.25 and PO2 was 64. He was admitted to the ICU for monitoring and aggressive treatment. Consulted to psychiatry due to agitation, aggressive behavior, patient was requesting to leave AMA. As per nursing in charge Eliane, patient was acting bizarre this morning, no making a lot of sense, agitated requesting to leave AMA and had to be restrained in 4 point. His arrived to the ICU was very upset of seeing her restrained, apparently she could not understand the reason for the agitation of her and was accusing the nurses of mistreatment. Later on she was explained that the nurse just was trying to protect the patient and she was also explained the rational behind behavior. On psychiatric evaluation patient was found calm and cooperative, he was mostly logical, coherent and lucid, with some periods of confusion and fluctuation of consciousness, but redirectable. Patient explains that he was upset because he feels that people has been disrespectful with him in the unit, he felt he was asked to many questions and he was feeling paranoid , now he seems to understand that he could be confused and disoriented. At this moment the patient denies depressive symptoms, he denies anxiety, he denies perceptual disturbances, he denies kim, he denies suicidal or homicidal ideation, he denies visual and auditory hallucinations. Patient is fully oriented and 3, no paranoia, no agitation, no aggressive behavior observed at this moment. Patient denies the use of alcohol and illicit drugs. Hours ago the patient was requesting to leave [facility], but after reassurance, redirection, fully explanation of his medical treatment and consequences of leaving AMA patient agreed to stay in the hospital. Review of Systems Eyes: DENIES: Blurred vision, Diplopia, Eye inflammation, Eye pain, Vision loss , Photosensitivity, Double Vision Respiratory: DENIES: Apneas, Cough, Snoring, Wheezing, Hemoptysis, Sputum production, Shortness of breath Cardiovascular: DENIES: Chest pain, Palpitations, Syncope, Dyspnea on Exertion , PND, Lower Extremity Edema, Orthopnea, Claudication Gastrointestinal: DENIES: Abdominal pain, Black stools, Bloody stools, Constipation, Diarrhea, Nausea, Vomiting, Difficulty Swallowing, Anorexia Musculoskeletal: DENIES: Joint pain, Muscle aches, Stiffness, Joint Swelling, Back pain, Neck pain Integumentary: DENIES: Abnormal pigmentation, Nail changes, Pruritus, Rash Hematologic/lymphatic: DENIES: Bruising, Lymphadenopathy Immunologic/allergic: DENIES: Eczema, Urticaria Neurologic: DENIES: Abnormal gait, Headache, Localized weakness, Paresthesias, Seizures, Speech Problems, Tremor, Poor Balance Psychiatric: COMPLAINS OF: Confusion Past Family Social History Coded Allergies: Iodine (Verified Allergy, Severe, ITCHING, 01/11/17) Shellfish (Verified Allergy, Intermediate, ITCHING, 01/11/17) Reported Medications Insulin Detemir Inj (Levemir Flextouch Pen Inj)300 unit/3 ML Pen20 Units SQ BID Ref 0 01/11/17 Meclizine 25 Mg Tab25 Mg PO TID PRN (VERTIGO) Ref 0 01/11/17 Metformin 500 Mg [id number] Mg PO BIDPC #60 TAB Ref 0 With meals 01/11/17 Current Medications Medications (Trade) Dose Ordered Sig/Nhi Route Start Time Stop Time Status Last Admin (NS Flush) 2 ml UNSCH PRN IVF 01/11/17 12:30 01/11/17 17:50 (NS Flush) 2 ml UNSCH PRN FLUSH 01/11/17 18:15 (NS Flush) 2 ml BID FLUSH 01/11/17 21:00 01/12/17 08:48 (Tylenol) 650 mg Q4H PRN PO 01/11/17 18:15 (Narcan Inj) 0.4 mg UNSCH PRN IV 01/11/17 18:15 (Heparin Inj) 5,000 units Q8H SQ 01/11/17 20:00 01/12/17 11:38 (Apresoline Inj) 10 mg Q6H PRN IV 01/11/17 20:30 Miscellaneous Information Patient in critical care unit? Ass... [id number] XX 01/11/17 21:15 01/11/17 21:15 (Chlorhexidine 2% Cloth) 3 pack DAILY@04 TOP 01/12/17 04:00 01/16/17 04:01 01/12/17 04:00 (Chlorhexidine 2% Cloth) 3 pack UNSCH PRN TOP 01/11/17 21:15 01/16/17 21:14 (Zofran Inj) 4 mg Q4HR PRN IVP 01/12/17 00:00 01/12/17 01:09 (Tums Chew) 500 mg Q6H PRN PO 01/12/17 01:30 (Levemir Inj) 5 units Q12HR SQ 01/12/17 04:45 01/12/17 08:47 Insulin Aspart 4 units 4 units TIDAC SQ 01/12/17 08:00 01/12/17 11:38 (D5W-1/2 NS 1000 ml Inj) 1,000 ml @ 150 mls/hr Q6H40M IV 01/12/17 06:00 01/12/17 06:00 (Folate) 1 mg DAILY PO 01/12/17 09:15 01/12/17 09:59 (Vitamin B1) 100 mg DAILY PO 01/12/17 09:15 01/12/17 09:59 (Theragran) 1 tab DAILY PO 01/12/17 09:15 01/12/17 09:59 Family History He denies Social History Patient was born and raised in [place], he has been living in [place] for 5 years, he lives with his in [place], he is a disabled , he served in the [employer], patient has a college degree Patient's Strengths (min. 2) Level of education Physical Exam Vital Signs Vital Signs Date Time Temp Pulse Resp B/P Pulse Ox O2 Delivery O2 Flow Rate FiO2 01/12/17 12:00 108 01/12/17 12:00 99.2 30 121/69 91 01/12/17 07:46 21 01/11/17 18:01 Nasal Cannula 3 I/O 01/11/17 01/11/17 01/12/17 08:00 16:00 00:00 Intake Total 934 ml Output Total 900 ml 900 ml Balance -900 ml 34 ml Mental Status Examination Appearance man, age appearing, wearing just short pants, good hygiene, some visible tattoos around his body, he is calm and cooperative Speech: Unremarkable Orientation: x3 Memory: Unremarkable Thought Process: Logical Thought Content: Unremarkable Hallucination Type: None Suicidal Ideation: No Previous Suicide Attempts: No Homicidal Ideation: No Previous Homicide Attempts: No Insight: Good Affect: Good Mood: Appropriate Motor Activity: Normal gait Assessment & Plan Problem List: (1) Delirium due to another medical condition Assessment & Plan: At the moment of the psychiatric evaluation the patient does not present any acute, concerning or significant objective or subjective symptomatology of depression, anxiety, kim, psychosis, agitation, aggressive behavior, mood or behavior dysregulation. The patient denies suicidal or homicidal ideation. The patient denies visual and auditory hallucinations. Patient is oriented 3, with episodes of confusion and fluctuation of consciousness. Described recent episode of internal preoccupation, visual hallucinations, disorganized behavior and thought, agitation, paranoia seems to be secondary to delirium related with underlying medical conditions and no to a primary psychiatric condition. The patient does not meet criteria for psychiatric admission. Will order Seroquel 50 mg at bedtime to help the patient with sleep and with psychotic symptoms. Avoid deliriogenic medications such as benzodiazepines/narcotics/anticholinergics. Frequent reorientation, sensory stimulation, appropriate light in his room, familiar faces around are always important to avoid episodes of delirium/sundowning. Extensive psychoeducation, motivation, support were provided to the patient and his . Since patient agrees to continue his hospitalization and following medical recommendations, assessment of capacity was not applicable at this moment. Consult appreciated. ICD Code: F05 Assessment & Plan Estimated LOS: Ralph Pina MD Jan 12, 2017 14:50
[2017-01-12] MEDS ORDERED: SODIUM CHLOR 0.9% 1000 ML INJ 1,000 ML IV SCH (15:45)
--- NOTE | 2017-01-12 16:54 | PD.AMA ---
Against Medical Advice Note Diagnosis: (1) Hyperglycemia without ketosis Discharge Disposition: Against Medical Advice Pt Condition on Discharge: Fair AMA Statement Patient Tk Bhat has decided to leave the hospital against medical advice. This patient has the capacity to refuse care and understands the risks of leaving, including permanent disability and/or , and has had an opportunity to ask questions about his condition. The patient has been informed that he may return for care at any time, and follow up has been arranged/ advised. If patient returns to hospital, we will not take him back on our team. Nomi Villafuerte MD R1 Jan 12, 2017 16:53
[2017-01-12] MEDS ORDERED: QUEtiapine FUMARATE 25 MG TAB PO SCH (21:00)
[2017-01-13 14:41] LABS: HEMOGLOBIN A1a 1.1 %; HEMOGLOBIN A1b 3.8 %; HEMOGLOBIN Ao 71.5 %; HEMOGLOBIN LA1C 5.4 %; HEMOGLOBIN P3 10.8 %
== END 2017-01-12 16:40 | disposition left against medical advice (07) | DRG 638 ==
LOC: NEPC 11:58 → NEDA 17:24 → HIME 20:45
PROVIDERS: ADMIT Family Medicine; ATTEND Family Medicine
DX: E13.10 Other specified diabetes mellitus with ketoacidosis without coma (principal); R64 Cachexia; F05 Delirium due to known physiological condition; E86.0 Dehydration; E87.6 Hypokalemia; Z79.4 Long term (current) use of insulin; Z79.84 Long term (current) use of oral hypoglycemic drugs; Z91.19 Patient's noncompliance with other medical treatment and regimen; Z98.890 Other specified postprocedural states; Z68.20 Body mass index [BMI] 20.0-20.9, adult; I10 Essential (primary) hypertension
CPT/HCPCS: 36600; 71010; 80048; 80053; 81001; 82010; 82805; 82948; 83036; 83605; 83690; 83735; 84100; 85025; 87040; 87641; 96361; 96372; 96374; J1644; J1815; J1817; J2405; J2543; J2550; J3480; J7030